=== PATIENT | male | born 1960 | race Caucasian/White ===

== ENCOUNTER 2016-05-22 17:59 | Emergency (ER) | payer OTHER ==
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
--- NOTE | 2016-05-22 19:05 | ED MAR SUMMARY ---
..... Medication Administration Record [facility] [address] [place], [place] [id number] Patient: ALMA SANDERSON RAHAT Visit ID: [id number] 56y, M Weight: 115.6 kg Height/Length: 77 in BMI: 30.2 ALLERGIES: No Known Drug Allergy
--- NOTE | 2016-05-22 19:05 | ED MED RECONCILIATION SUMMARY ---
Patient: ALMA SANDERSON RAHAT Medication Reconciliation Report [facility] VisitID: [id number] [address] [place] [address] 56y, M Registration Date/Time: 05/22/2016 Weight: 115.6 kg Height/Length: 77 in. BMI: 30.2 ALLERGIES: No Known Drug Allergy The patient's Home Medications are listed below: NONE. The source(s) of the original Home Medication information: Not obtained. The following Medications were given to the patient in the Emergency Department: None. The following Medications were prescribed to the patient: Naproxen 500 mg tablets: take 1 orally every 12 hours as needed for pain. Dispense twenty (20). No refills. -- Maggie Castillo A.R.N.P. Flexeril 10 mg: Take 1 orally every 8 hours as needed for muscle spasm. Dispense twenty (20). No refills. Substitution is permissible. -- Maggie Castillo A.R.N.P.
--- NOTE | 2016-05-22 19:05 | ED MAR SUMMARY ---
..... Medication Administration Record [facility] [address] [place], [place] [id number] Patient: ALMA SANDERSON RAHAT Visit ID: [id number] 56y, M Weight: 115.6 kg Height/Length: 77 in BMI: 30.2 ALLERGIES: No Known Drug Allergy
--- NOTE | 2016-05-22 19:05 | ED MED RECONCILIATION SUMMARY ---
Patient: ALMA SANDERSON RAHAT Medication Reconciliation Report [facility] VisitID: [id number] [address] [place] [address] 56y, M Registration Date/Time: 05/22/2016 Weight: 115.6 kg Height/Length: 77 in. BMI: 30.2 ALLERGIES: No Known Drug Allergy The patient's Home Medications are listed below: NONE. The source(s) of the original Home Medication information: Not obtained. The following Medications were given to the patient in the Emergency Department: None. The following Medications were prescribed to the patient: Naproxen 500 mg tablets: take 1 orally every 12 hours as needed for pain. Dispense twenty (20). No refills. -- Maggie Castillo A.R.N.P. Flexeril 10 mg: Take 1 orally every 8 hours as needed for muscle spasm. Dispense twenty (20). No refills. Substitution is permissible. -- Maggie Castillo A.R.N.P.
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
== END 2016-05-22 18:45 | disposition home or self-care (01) ==
LOC: ED SRH 17:59
DX: M79.1 Myalgia (principal); V43.51XA Car driver injured in collision with sport utility vehicle in traffic accident, initial encounter; Y93.89 Activity, other specified; Y92.410 Unspecified street and highway as the place of occurrence of the external cause; Y99.9 Unspecified external cause status